=== PATIENT | female | born 1990 ===

== ENCOUNTER 2020-10-29 05:30 | Inpatient (IN) | payer MEDICAID, OTHER, SELFPAY ==
[2020-10-29] MEDS ORDERED: hydrALAZINE 20 MG/ML VIAL SLOW IVP PRN (06:07)
[2020-10-29] MEDS ORDERED: HYDROcodone/Acetaminophen 5/325 mg Tablet PO PRN (06:07)
[2020-10-29] MEDS ORDERED: Ondansetron PF 4 MG/2 ML Vial IVP PRN ×2 (06:07→11:25)
[2020-10-29] MEDS ORDERED: Lidocaine 1% (PF) 30 ML VIAL SC PRN (06:07)
[2020-10-29] MEDS ORDERED: Butorphanol Tartrate 1 MG/ML VIAL SLOW IVP PRN (06:07)
[2020-10-29] MEDS ORDERED: Ibuprofen 800 MG TAB PO PRN (06:07)
[2020-10-29] MEDS ORDERED: NS w/ Oxytocin 30 units 500 ML IVPB SCH (06:15)
[2020-10-29 06:39] VITALS: BMI 30.7
[2020-10-29 06:48] LABS: Hemoglobin 12.8 g/dL (12.0-15.5); Mean Corpuscular HGB CONC 34.8 g/dL (32.0-36.0); Mean Platelet Volume 10.7 fl (7.4-10.4); Platelet Count 195 10x3/uL (150-450); RBC Distribution Width 12.7 % (11.5-14.5); White Blood Cell (WBC) Count 9.2 10x3/uL (3.5-10.5)
[2020-10-29 07:25] LABS: Syphilis Antibody Nonreactive (Nonreactive); Syphilis Antibody Index 0.04 S/CO (<1.00 Non-Reactive)
[2020-10-29 07:27] LABS: Hep B Surf Ag Non-Reactive S/CO (NonReactive)
[2020-10-29] MEDS ORDERED: Fentanyl 2 mcg/Bup 0.1% Cadd 100 ML ONE (10:52)
[2020-10-29] MEDS: NS w/ Oxytocin 30 units 500 ML IV SCH (11:24)
[2020-10-29] MEDS: Lactated Ringer's 1,000 ML IV SCH (11:24)
[2020-10-29] MEDS ORDERED: Acetaminophen 325 MG TAB PO PRN (11:25)
[2020-10-29] MEDS ORDERED: diphenhydrAMINE 50 MG/ML VIAL IVP PRN (11:25)
[2020-10-29] MEDS ORDERED: Lactated Ringer's 500 ML IV PRN (11:25)
[2020-10-29] MEDS ORDERED: Promethazine HCl 25 MG/ML VIAL IM PRN (11:25)
[2020-10-29] MEDS ORDERED: Hydrocerin (Eucerin) Cream 120 gm Jar TOP PRN (11:25)
[2020-10-29] MEDS ORDERED: Naloxone HCl 0.4 mg/ml Vial IVP PRN ×2 (11:25)
[2020-10-29] MEDS ORDERED: ePHEDrine Sulfate 50 MG/10 ML VIAL SLOW IVP PRN (11:25)
[2020-10-29] MEDS ORDERED: Communication Order-Pharmacy FS SCH (11:30)
[2020-10-29] MEDS ORDERED: Fentanyl 2 mcg/Bupivacaine 0.1% Cassette 100 ML EPIDURAL SCH (11:30)
[2020-10-29 11:47] LABS: HIV (1/2) Antibody/Antigen Non-Reactive (NonReactive); HIV 1/2 INDEX 0.12 S/CO (<1.00)
[2020-10-29] MEDS ORDERED: Penicillin G Potassium 5 MILL.UNITS VIAL ONE (15:42)
[2020-10-29 16:11] LABS: HBSAg Index 0.14 S/CO (0-0.99)
[2020-10-29] MEDS: Penicillin G 2.5 MILL.units 2.5 MILL.UNITS in Premix Bag 1 BAG IVPB SCH (19:37)
[2020-10-29] MEDS ORDERED: Bicitra 30 ML UDCUP PO PRN (23:05)
[2020-10-29] MEDS ORDERED: Famotidine/PF 20 mg/2ml Vial SLOW IVP PRN (23:05)
[2020-10-29] MEDS ORDERED: Azithromycin 500 MG VIAL ONE (23:08)
[2020-10-29] MEDS ORDERED: Azithromycin 500 MG in Sodium Chloride 0.9% 250 ML 250 ML IVPB SCH (23:15)
[2020-10-29] MEDS ORDERED: CEFAZOLIN 2 GM in Premix Bag 1 BAG IVPB SCH (23:15)
[2020-10-29] MEDS ORDERED: Oxytocin 10 UNITS/ML VIAL ONE (23:18)
[2020-10-29] MEDS ORDERED: PHENYLEPHRINE-NS 100 MCG/ML 10 ML SYRINGE ONE (23:18)
[2020-10-29] MEDS ORDERED: Dexamethasone 4 mg/ml Vial ONE (23:18)
[2020-10-29] MEDS ORDERED: Ondansetron PF 4 MG/2 ML Vial ONE (23:18)
[2020-10-29] MEDS ORDERED: EPINEPHrine 1 MG/10 ML Abboject SYRINGE ONE (23:43)
[2020-10-29] MEDS ORDERED: Lidocaine 2% MPF 10 ML AMP (For Epidural Use) ONE (23:43)
[2020-10-29] MEDS ORDERED: Morphine PF 10 MG/10 ML VIAL ONE (23:46)
[2020-10-29] MEDS ORDERED: PROPOFOL 20 ML ONE (23:47)
[2020-10-30] MEDS ORDERED: Oxytocin 10 UNITS/ML VIAL ONE (00:03)
[2020-10-30] MEDS ORDERED: Methylergonovine 0.2 MG/ML VIAL ONE (00:07)
[2020-10-30] MEDS ORDERED: Carboprost 250 MCG/ML AMP ONE (00:07)
[2020-10-30] MEDS ORDERED: PROPOFOL 20 ML ONE ×2 (00:09→00:24)
[2020-10-30 00:30] LABS: pH (Cord, venous) 7.066 (7.250-7.350)
[2020-10-30] MEDS ORDERED: Phytonadione Neonatal 1 MG/0.5 ML AMP ONE (00:42)
[2020-10-30] MEDS ORDERED: Erythromycin Base 0.5% Oint 1 GM TUBE ONE (00:42)
[2020-10-30] MEDS ORDERED: Lanolin Ointment 7 GM TUBE TOP PRN (01:05)
[2020-10-30] MEDS ORDERED: Boostrix 0.5 ML (Tdap) VIAL IM ONE (01:05)
[2020-10-30] MEDS ORDERED: hydrALAZINE 20 MG/ML VIAL SLOW IVP PRN (01:05)
[2020-10-30] MEDS ORDERED: Ondansetron PF 4 MG/2 ML Vial IVP PRN ×3 (01:05→01:31)
[2020-10-30] MEDS ORDERED: Ketorolac Tromethamine 30 MG/ML VIAL IVP PRN (01:07)
[2020-10-30] MEDS ORDERED: Naloxone HCl 0.4 mg/ml Vial IV PRN ×2 (01:07→01:31)
[2020-10-30] MEDS ORDERED: Promethazine HCl 25 MG SUPP PR PRN (01:07)
[2020-10-30] MEDS ORDERED: Promethazine HCl 25 MG/ML VIAL IM PRN ×2 (01:07→01:31)
[2020-10-30] MEDS ORDERED: Hydrocerin (Eucerin) Cream 120 gm Jar TOP PRN (01:07)
[2020-10-30] MEDS ORDERED: diphenhydrAMINE 50 MG/ML VIAL IVP PRN ×2 (01:07→01:31)
[2020-10-30] MEDS ORDERED: Naloxone HCl 0.4 mg/ml Vial IVP PRN ×2 (01:07)
[2020-10-30] MEDS ORDERED: Communication Order-Pharmacy FS SCH ×2 (01:15→01:45)
[2020-10-30] MEDS ORDERED: NS w/ Oxytocin 30 units 500 ML IV SCH (01:15)
[2020-10-30] MEDS ORDERED: diphenhydrAMINE 50 MG/ML VIAL IM PRN (01:31)
[2020-10-30] MEDS ORDERED: diphenhydrAMINE 25 MG CAP PO PRN (01:31)
[2020-10-30] MEDS ORDERED: Zolpidem Tartrate 5 MG TAB PO PRN (01:31)
[2020-10-30] MEDS ORDERED: hydrALAZINE 20 MG/ML VIAL ONE (01:46)
[2020-10-30] MEDS ORDERED: Ketorolac Tromethamine 30 MG/ML VIAL ONE (01:48)
[2020-10-30] MEDS ORDERED: Fentanyl CADD 100 ML IV PRN (02:00)
[2020-10-30] MEDS: NS w/ Oxytocin 30 units 500 ML IV SCH (02:36)
[2020-10-30] MEDS ORDERED: FENTANYL CITRATE IV PRN (02:45)
[2020-10-30] MEDS ORDERED: fentaNYL Citrate/PF PCA SYRING 50 ML IV PRN (06:00)
[2020-10-30] MEDS: Lactated Ringer's 1,000 ML IV SCH (07:21)
[2020-10-30] MEDS: Penicillin G 2.5 MILL.units 2.5 MILL.UNITS in Premix Bag 1 BAG IVPB SCH (07:21)
[2020-10-30] MEDS: Prenatal Vitamin 1 TAB PO SCH (08:10)
[2020-10-31] MEDS: HYDROcodone/Acetaminophen 5/325 mg Tablet PO PRN ×3 (04:11→16:57)
[2020-10-31] MEDS: Ibuprofen 800 MG TAB PO SCH ×3 (05:18→21:18)
[2020-10-31 07:27] LABS: Hemoglobin 10.2 g/dL (12.0-15.5); Mean Corpuscular HGB CONC 34.2 g/dL (32.0-36.0); Mean Corpuscular Volume 93.4 fl (81.6-98.3); Mean Platelet Volume 10.6 fl (7.4-10.4); Platelet Count 182 10x3/uL (150-450); RBC Distribution Width 13.6 % (11.5-14.5); Red Blood Cell (RBC) Count 3.19 10x6/uL (3.90-5.03); White Blood Cell (WBC) Count 15.9 10x3/uL (3.5-10.5)
[2020-10-31] MEDS: Simethicone Chewable 80 MG TAB PO PRN ×3 (08:11→21:19)
[2020-10-31] MEDS: Prenatal Vitamin 1 TAB PO SCH (08:11)
[2020-10-31 08:17] LABS: #Monocytes 0.9 10x3/uL (0.0-1.1); #Neutrophils 13.5 10x3/uL (1.5-8.4); %Basophils 0.2 % (0.0-2.0); %Eosinophils 0.2 % (0.0-6.0); %Lymphocytes 9.5 % (18.0-47.0); %Monocytes 5.7 % (0.0-10.0); %Neutrophils 83.4 % (40.0-75.0); Hemoglobin 10.5 g/dL (12.0-15.5); Mean Corpuscular HGB CONC 34.2 g/dL (32.0-36.0); Mean Corpuscular Hemoglobin 32.3 pg (27.0-33.0); Mean Corpuscular Volume 94.5 fl (81.6-98.3); Mean Platelet Volume 10.2 fl (7.4-10.4); Platelet Count 177 10x3/uL (150-450); RBC Distribution Width 13.4 % (11.5-14.5); Red Blood Cell (RBC) Count 3.25 10x6/uL (3.90-5.03); White Blood Cell (WBC) Count 16.2 10x3/uL (3.5-10.5)
[2020-11-01] MEDS: HYDROcodone/Acetaminophen 5/325 mg Tablet PO PRN ×2 (00:25→14:13)
[2020-11-01] MEDS: Ibuprofen 800 MG TAB PO SCH ×3 (06:15→21:38)
[2020-11-01] MEDS: Prenatal Vitamin 1 TAB PO SCH (08:10)
[2020-11-01] MEDS: Simethicone Chewable 80 MG TAB PO PRN (14:13)
[2020-11-02] MEDS: HYDROcodone/Acetaminophen 5/325 mg Tablet PO PRN ×2 (00:54→10:58)
[2020-11-02] MEDS: Ibuprofen 800 MG TAB PO SCH (05:28)
[2020-11-02] MEDS: Prenatal Vitamin 1 TAB PO SCH (10:57)
[2020-11-02] MEDS: Simethicone Chewable 80 MG TAB PO PRN (11:01)
[2020-11-02 11:36] VITALS: BP 140/79; TEMP 98
== END 2020-11-02 12:20 | disposition home or self-care (01) | DRG 788 ==
LOC: CSHLD 05:39 → CSHPP 10-30 05:40
PROVIDERS: ADMIT Obstetrics & Gynecology; ATTEND Obstetrics & Gynecology
PROC: 10D00Z1 Extraction of Products of Conception, Low, Open Approach (ICD-10-PCS; principal; 2020-10-29)
PROC: 0UQ90ZZ Repair Uterus, Open Approach (ICD-10-PCS; 2020-10-29)
DX: O36.63X0 Maternal care for excessive fetal growth, third trimester, not applicable or unspecified (principal); Z3A.39 39 weeks gestation of pregnancy; Z37.0 Single live birth; O77.0 Labor and delivery complicated by meconium in amniotic fluid; O76 Abnormality in fetal heart rate and rhythm complicating labor and delivery; O64.0XX0 Obstructed labor due to incomplete rotation of fetal head, not applicable or unspecified; O62.2 Other uterine inertia; O75.4 Other complications of obstetric surgery and procedures; O99.893 Other specified diseases and conditions complicating puerperium; R00.0 Tachycardia, unspecified
CPT/HCPCS: 36415; 51702; 76815; 82805; 85027; 85461; 86762; 86780; 86850; 86900; 86901; 87081; 87340; 87389; 88307; 90384; 96372; 99283; J0171; J0360; J1100; J1885; J2210; J2274; J2405; J2540; J2590; J2704; J3010; J3490; U0003; U0005

== ENCOUNTER 2020-11-04 12:29 | Emergency (ER) | payer MEDICAID, SELFPAY | END 2020-11-04 13:11 | disposition left against medical advice (07) | LOC: CSHERS 12:29 | DX: Z53.21 Procedure and treatment not carried out due to patient leaving prior to being seen by health care provider (principal) ==